=== PATIENT | female | born 1965 | race Caucasian/White ===

== ENCOUNTER 2016-05-11 07:56 | Outpatient (CLI) | payer BC ==
--- NOTE | 2016-05-11 11:29 | DIAGNOSTIC IMAGING REPORT ---
PROCEDURE: MG BILATERAL SCREENING W/CAD INDICATION: SCREENING TECHNIQUE: Bilateral CC and MLO digital views. COMPARISON: Compared to right mammogram right breast ultrasound (05/08/2015), and screening mammogram studies (04/30/2015, 05/11/2014. Comparison is also made to prior outside MRI breast from [facility] on 06/17/2015. FINDINGS: Computer-aided detection applied. Mildly to moderately dense. No change. No evidence of mass or suspicious calcification. IMPRESSION: 1. Negative mammogram RESULT CODE: 1- Negative. A. A negative report should not delay biopsy if a dominant or clinically suspicious mass is present. 10-15% of cancers are not identified by x-ray. B. A negative report may reinforce clinical impression. C. Adenosis and dense breasts may obscure an underlying neoplasm. D. False positive reports average 6-10%. E.. A yearly screening mammogram is recommended. A reminder letter will be scheduled.
== END 2016-05-11 23:00 ==
LOC: MAM SRH 07:56
DX: Z12.31 Encounter for screening mammogram for malignant neoplasm of breast (principal)

== ENCOUNTER 2016-05-15 08:37 | Outpatient (CLI) | payer BC ==
--- NOTE | 2016-05-15 10:24 | DIAGNOSTIC IMAGING REPORT ---
PROCEDURE: XR CHEST 2 VIEW INDICATION: SKIN LESIONS TECHNIQUE: PA and lateral views. COMPARISON: None. FINDINGS: Lungs are clear. Heart and mediastinum are normal. Thorax is normal. IMPRESSION: 1. Negative chest.
== END 2016-05-15 23:00 | disposition home or self-care (01) ==
LOC: XR SRH 08:37
DX: L98.9 Disorder of the skin and subcutaneous tissue, unspecified (principal)